=== PATIENT | male | born 2000 | race Two or more races ===

== ENCOUNTER 2020-03-26 14:31 | Emergency (ER) | payer SELFPAY ==
[~2020-03-26] VITALS: Ht 172.7 cm; Wt 62.0 kg
[2020-03-26 14:34] VITALS: BP 148/98
== END 2020-03-26 15:13 | disposition left against medical advice (07) ==
LOC: ER 14:31
DX: F12.129 Cannabis abuse with intoxication, unspecified (principal)
CPT/HCPCS: 99283